=== PATIENT | female | born 1950 | race Caucasian/White ===

== ENCOUNTER 2024-05-14 18:23 | Emergency (ER) | payer MEDICARE, SELFPAY ==
[2024-05-14 18:34] VITALS: BP 139/71; PULSE 82; RESP 20; TEMP 36.9; O2SAT 94
--- NOTE | 2024-05-14 19:11 | ED_ITS ---
HPI - Skin/Abscess/Foreign Bdy General Chief complaint: Skin/Abscess/Foreign Body Stated complaint: Suture Removed Time Seen by Provider: 05/14/24 18:50 Source: patient and RN notes reviewed Mode of arrival: ambulatory Limitations: no limitations History of Present Illness HPI narrative: Patient presents today requesting evaluation of a previous surgical site. She had some melanoma removed from her left groin/inner buttock area at the end of February in [place]. Since that time she has had some absorbable sutures that have migrated through the skin and so far has had to removed this way. States she has felt another 1 trying to come through the skin over the last couple of days and wanted to have it evaluated. She is supposed to have radiation to this area next week and has to have it fully healed by that time. Related Data Home Medications ?Medication ?Instructions ?Recorded ?Confirmed ?Last Taken ?Type famotidine PO 05/14/24 Unknown History hydroxychloroquine PO 05/14/24 Unknown History levothyroxine .ROUTE 05/14/24 Unknown History lisinopril 20 1 tablet PO DAILY 05/14/24 Unknown History mg-hydrochlorothiazide 12.5 mg tablet rosuvastatin .ROUTE 05/14/24 Unknown History tramadol .ROUTE 05/14/24 Unknown History Allergies Allergy/AdvReac Type Severity Reaction Status Date / Time celecoxib (From Celebrex) Allergy Unknown Unknown Verified 05/14/24 18:44 Sulfa (Sulfonamide Allergy Unknown Unknown Verified 05/14/24 18:44 Antibiotics) vitamin c Allergy Unknown Unknown Uncoded 05/14/24 18:44 Review of Systems Review of Systems: CONSTITUTIONAL: Denies body aches, fever, chills, or sweats. EYES: Denies visual changes, redness, or discharge. ENT: Denies rhinorrhea, congestion, sore throat, or otalgia. CARDIOVASCULAR: Denies chest pain, palpitations, or edema. RESPIRATORY: Denies cough or dyspnea. GASTROINTESTINAL: Denies abdominal pain, nausea, vomiting, or diarrhea. GENITOURINARY: Denies dysuria or hematuria. SKIN: + skin issue MUSCULOSKELETAL: Denies back pain, joint pain, or myalgia. NEUROLOGIC: Denies headache, numbness, tingling, or weakness. PSYCH: Denies depression or anxiety. [facility] Past Medical History Medical History (Updated 05/14/24 @ 19:15 by Ly Rob, [facility], ) Melanoma Comments At time of signature, I have reviewed and agree with nursing past medical, surgical, social and family history unless otherwise noted. Please see nursing chart for further information. There is no relevant family history pertinent to the presenting complaint Exam Narrative: GENERAL: Well-appearing, well-nourished, and in no acute distress. HEAD: Normocephalic, atraumatic. EYES: EOMI. No redness or drainage. Conjunctivae normal. ENT: Mucous membranes pink and moist. NECK: Normal AROM. CHEST: No respiratory distress. EXTREMITIES: Normal range of motion. SKIN: Left groin area has multiple scars and 2 small superficial open wounds each measuring approximately 2-3 mm round. Patient has 1 pinpoint area under t he skin that is sharp, that may be a suture poking through, but it has not erupted through the skin yet. No signs of current infection. NEURO: No focal deficits. Alert and oriented x3. Gait steady. PSYCH: Normal affect. No signs of depression or anxiety. Course Course Level of Care: Express Care Visit Vital Signs Vital signs: Vital Signs Temperature 98.4 F 05/14/24 18:34 Pulse Rate 82 05/14/24 18:34 Respiratory Rate 20 05/14/24 18:34 Blood Pressure 139/71 05/14/24 18:34 Pulse Oximetry 94 05/14/24 18:34 Oxygen Delivery Room Air 05/14/24 18:34 Temperature 98.4 F 05/14/24 18:34 Pulse Rate 82 05/14/24 18:34 Respiratory Rate 20 05/14/24 18:34 Blood Pressure 139/71 05/14/24 18:34 Pulse Oximetry 94 05/14/24 18:34 Oxygen Delivery Room Air 05/14/24 18:34 Reviewed MDM - Skin/Abscess/Foreign Bdy MDM Narrative Medical decision making narrative: Patient currently has no erupted suture to be removed. Instructed to continue to monitor. Differential Diagnosis Differential diagnosis: Likely abscess of skin or subcutaneous tissue, cellulitis and other (Foreign body) Critical Care Time Critical Care Time Critical Care Time: No Discharge Plan Discharge Clinical Impression: Open wound of skin Patient Disposition: Home, Self-Care Condition: Stable Additional Instructions: You have 2 small wounds that are still open on your skin. They seem to be very superficial without signs of infection. At this time, you do not have any erupted suture material 3 your skin to be removed. Please continue to monitor. Your blood pressure was elevated above 120/80 today at Urgent Care. This puts you above the threshold for follow up. Please schedule a followup visit with your personal physician as soon as possible, for further evaluation and treatment. Even blood pressure exceeding 120/80 may indicate pre-hypertension. Patient Language: Faroese Prescriptions: No Action famotidine PO lisinopril-hydrochlorothiazide 20-12.5 mg tablet 1 tablet PO DAILY rosuvastatin [Crestor] .ROUTE hydroxychloroquine PO tramadol .ROUTE levothyroxine .ROUTE Follow-up/Referrals: Nicko,Irvin Kwong MD [Primary Care Provider] - Time of Disposition: 19:15
--- OUTSIDE RECORDS SUMMARY | 2024-05-14 19:12 | XMS_ITS | Encounter Summary ---
Author Organization [facility] Address [address] [place] [address] Phone Care Team Providers Care Cloth Washer Back Tender Name Role Phone Irvin Maharaj MD Primary Care Provider [phone] Kenny Hudson MD Unavailable Debi Turner MD Unavailable Reason for Visit * Reason Onset Date Comments Appointment 05/14/2024 Suture Removal 05/14/2024 Encounter Details Date Type Department Care Team (Late st Contact Info) Description 05/14/2024 Telephone [facility] Call Center [address] [place] [address] Irvin Maharaj MD [address] [place] [address] Appointment; Suture Removal Social History Tobacco Use Types Packs/Day Years Used Date Smoking Tobacco: Former Cigarettes 1 1 Smokeless Tobacco: Never Comments:smoked in college Alcohol Use Standard Drinks/Week Comments No 0 (1 standard drink = 0.6 oz pur e alcohol) PHQ-2 Answer Date Recorded Total Score - Questions 1-9 0 11/29 Education Answer Date Recorded What is the highest level of school you have completed or the highest degree you have received? Some college, no degree 10/04/2022 Comments No Sex and Gender Information Value Date Recorded Sex Assigned at Not on file Legal Sex Female 10:15 PM CDT Gender Identity Not on file Sexual Orientation Not on file documented as of this encounter Miscellaneous Notes * Telephone Encounter - Leroy Panda PAC - 05/14/2024 5:22 PM CDT She still has a suture in place from surgery in February?? She needs this removed timoteo if that's thecase. [facility] or nurse clinic would be appropriate for this. * Telephone Encounter - Vanessa Weiss RN - 05/14/2024 3:30 PM CDT Situation: suture removal Background: patient contacting PCP office. Had surgery for melanoma on 03/05/2024 to left groin/thigh and left buttocks. Radiation scheduled for 05/21/24 per patient, after the incision area is healed Reports immunotherapy Nizolumab Relatlimab on 05/10/24 Assessment: Patient needs suture removed from left buttocks Recommendation: First available appointment for cvt rn is 05/21/24 - patient states that this is too late. Patient declining available appointments and states she will be seen at a [facility] care instead. Encounter routed to provider as an FYI. Patient agreeable to go to [facility]. * Telephone Encounter - Suni Gilliam - 05/14/2024 3:27 PM CDT Incision still has a suture that needs removed after surgery. Patient wanting to schedule an appt with PCP office to remove documented in this encounter Plan of Treatment Upcoming Encounters Date Type Department Care Team (Late st Contact Info) Description 06/25/2024 9:00 AM CDT Office Visit [facility] - Primary Care - [place] [address] [place] [address] Irvin Maharaj MD [address] [place] [address] documented as of this encounter Visit Diagnoses Not on filedocumented in this encounter Additional Health Concerns Assessment Noted Time PHQ-9 Depression Total Score: 0 12/20/19 24 2:47 PM CDT documented as of this encounter Care Teams Cloth Washer Back Tender Relationship Specialty Start Date End Date Irvin Maharaj MD [address] [place] [address] PCP - General Internal Medicine 11/29/14 Kenny Hudson MD [address] [place] [address] Consulting Physician Orthopaedic Sports Medicine 07/18/18 Debi Turner MD [address] [address] Consulting Physician Endocrinology 09/15/21 documented as of this encounter
--- OUTSIDE RECORDS SUMMARY | 2024-05-14 19:12 | XMS_ITS | Clinical Summary ---
Author Organization [facility] Address [address], [facility] [address] [place] [address] Phone Care Team Providers Care Escalation Engineer Name Role Phone Irvin Maharaj MD Primary Care Provider [phone] Kenny Hudson MD Unavailable [phone] Debi Turner MD Unavailable Allergies Active Allergy Reactions Criticality Noted Date Comments Celecoxib Rash 06/20/2015 Sulfa Antibiotics Hives 07/26/2023 Vitamin C Nausea Low 12/22/2018 Chewable tablets Medications Multiple Vitamins-Minerals (MULTIVITAMIN PO) Take 1 Cap by mouth every morning. Active Probiotic Product (PROBIOTIC-10 PO) Take by mouth. Active Vitamin D-Vitamin K (VITAMIN K2-VITAMIN D3 PO) Take by mouth. Active hydroxychloroquine (PLAQUENIL) 200 MG Tablet Take 1 Tablet by mouth daily. 90 Tablet 1 2 Active rosuvastatin (CRESTOR) 20 MG TabletIndications: Mixed hyperlipidemia Take 1 Tablet by mouth daily. 90 Tablet 3 3 Active levothyroxine (SYNTHROID) 175 MCG Tablet Take 175 mcg by mouth See Admin Instructions. Takes 6 days per day, does not take on Sundays Active CLOTRIMAZOLE-BETAM ETHASONE EX by Apply externally route. Product from [place] per patient. Includes Gentamicin in cream. States is an anti-itch, antibiotic cream. Active traMADol (ULTRAM) 50 MG TabletIndications: Arthritis Take 1 Tablet by mouth every 8 hours as needed for Moderate or more severe pain. 90 Tablet 1 4 Active lisinopril-hydroCH LOROthiazide (PRINZIDE, ZESTORETIC) 20-12.5 MG TabletIndications: Hypertension, essential Take 2 Tablets by mouth daily. 180 Tablet 1 4 Active famotidine (PEPCID) 20 MG TabletIndications: Gastroesophageal reflux disease without esophagitis TAKE 1 TABLET BY MOUTH TWICE A DAY 180 Tablet 5 Active mupirocin (BACTROBAN) 2 % Ointment 2 times daily. 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 Mixed hyperlipidemia Hypertension, essential Resolved Problems Problem Noted Date Diagnosed Date Resolved Date Papillary thyroid carcinoma 06/15/2023 07/18/2023 Peripheral vascular disease 06/21/2021 09/30/2021 Encounters Date Type Department Care Team Description 05/14/2024 Telephone [facility] [address] [place] [address] Irvin Maharaj MD Appointment; Suture Removal 04/08/2024 Refill [facility] - Primary Care - [place] [address] [place] [address] Irvin Maharaj MD Medication Refill from Last 3 Months Immunizations Immunization Administration Dates Next Due Influenza Vaccine 12/14/2017 Influenza Vaccine greater than 3 yrs 11/14/2019, 11/28/2013 Influenza Vaccine, Quadrivalent, PF 12/30/2016 Influenza, High-dose, Quadrivalent 12/29/2021 Influenza, Quadrivalent, Adjuvanted 12/12/2020 Influenza, Trivalent, Adjuvanted, PF 12/20/2023 Influenza, high-dose, trivalent, PF 11/14/2018,1 PUR FLU HIGH DOSE (FLUZONE) 12/18/2015 PUR PCV-13 06/20/2015 Pneumococcal Vaccine Adult - 23 Valent 5 TDAP Vaccine 12/11/2007 Zoster Vaccine, live 10/05/2010 Family History Medical History Relation Name Comments Chronic Obstructive Pulmonary Disease Father Congestive Heart Failure Father Breast Cancer Maternal Aunt x2 Breast Cancer Maternal Grandmother Diabetes Mother Hypertension Mother Colon Cancer Paternal Uncle Cancer Sister 1 Diabetes Sister 1 Leukemia/Lymphoma Sister 1 Diabetes Sister 2 Relation Name Status Comments Father Maternal Aunt x2 Maternal Grandmother Mother Paternal Uncle Sister 1 Sister 2 Social History Tobacco Use Types Packs/Day Years Used Date Smoking Tobacco: Former Cigarettes 1 1 Smokeless Tobacco: Never Tobacco Cessation:Counseling Given: Not Answered Comments:smoked in college Alcohol Use Standard Drinks/Week [...] on file Sexual Orientation Not on file Last Filed Vital Signs Vital Sign Reading Time Taken Comments Blood Pressure 118/74 12/20/2023 2:49 PM CDT Pulse 74 12/20/2023 2:49 PM CDT Temperature 37.3 C (99.1 F) 12/20/2023 2:49 PM CDT Respiratory Rate 18 12/20/2023 2:49 PM CDT Oxygen Saturation 95% 12/20/2023 2:49 PM CDT Inhaled Oxygen Concentration - - Weight 124.7 kg (275 lb) 12/20/2023 2:49 PM CDT Height 172.7 cm (5' 8 ) 12/20/2023 2:49 PM CDT Body Mass Index 41.81 12/20/2023 2:49 PM CDT Plan of Treatment Upcoming Encounters Date Type Department Care Team (Late st Contact Info) Description 06/25/2024 9:00 AM CDT Office Visit [facility] - Primary Care - [place] [address] [place] [phone] Irvin aMharaj MD [address] [place] [address] Health Maintenance Due Date Last Done Comments Cologuard 05/05/1999 Immunochemical Fecal Occult Blood 05/05/1999 Zoster Immunization (1 of 2) 11/30/2010 10/05/2010 Td Immunization Every 10 Years (Adults With 1 Tdap) 12/10/2017 12/11/2007 DEXA Bone Density 07/20/2019 07/19/2017, 02/28/2010 SARS-COV-2 Immunization (2 - Pfizer risk series) 12/30/2021 12/09/2021 Mammogram 05/26/2022 05/26/2021, 07/30/2016 Respiratory Syncytial Virus (RSV) Immunization (Adult) (1 - 1-dose 75+ series) 2024 Colonoscopy 03/14/2029 03/14/2019, 12/06/2016 Colorectal Cancer Screening 03/14/2029 03/14/2019, 12/06/2016 Pneumococcal Immunization (50+ years) Completed 06/20/2015, 05/29/2014 Pneumococcal Immunization Combined Discontinued 06/20/2015, 05/29/2014 Hepatitis C Virus (HCV) Screening Completed 10/07/2023 Influenza Immunization Completed , 12/29/2021, 12/12/2020, Additional history exists Hepatitis B Immunization Aged Out No longer eligible based on patient's age to complete this topic Meningococcal Immunization (ACWY) Aged Out No longer eligible based on patient's age to complete this topic Rotavirus Immunization Aged Out No lo nger eligible based on patient's age to complete this topic Procedures Procedure Name Priority Date/Time Associated Diagnosis Comments HEPATITIS C ANTIBODY Routine 10/07/2023 9:17 AM CDT Encounter for hepatitis C screening test for low risk patient MAMMOGRAM BILATERAL GENERIC 05/26/2021 12:00 AM CDT COLONOSCOPY Routine 03/14/2019 [facility] BONE DENSITOMETRY AXIAL SKELETON Routine 07/19/2017 11:30 AM CDT Asymptomatic menopausal state Encounter for screening for osteoporosis from Last 3 Months or Most Recently Relevant to Health Maintenance Results * HEPATITIS C ANTIBODY (10/07/2023 9:17 AM CDT) hepatitis C antibody 0.07 <1 S/CO 10/07/2023 11:00 PM CDT [facility] Comment: Signal/Cutoff ratio < 0.79 is Nondetected Signal/Cutoff ratio 0.80-0.99 is Grayzone Signal/Cutoff ratio > 0.99 is Detected Supplemental assays are recommended if signal/cutoff ratio is >/=1.00. Signal/cutoff ratio result >/= 5.00 is 97% predictive of positivity for recombinant immunoblot assay (RIBA) and will be reported to the [place] Department of Public Health as required. Blood Venipuncture / Unknown 10/07/2023 9:17 AM CDT 10/07/2023 9:17 AM CDT us Irvin Maharaj MD CHEMISTRY ORDERABLES Jennifer l Result [facility] [address] [place] [address], [place] * MAMMOGRAM BILATERAL MISCELLANEOUS (05/26/2021 12:00 AM CDT) 05/26/2021 us Not On File Provider IMG MAMMO ORDERABLES Final Result SCAN * COLONOSCOPY (03/14/2019) us Not On File Provider PROCEDURE/MINOR SURGICAL OR DERABLES Final Result * [facility] BONE DENSITOMETRY AXIAL SKELETON (07/19/2017 11:30 AM CDT) Anatomical Region Laterality Modality BODY N/A Other 07/19/2017 11:4 4 AM CDT Impressions 07/19/2017 11:46 AM CDT IMPRESSION: Normal bone mineral density. Bone mineral density: Normal (T-score above or = -1.0) Low bone mass (T-score between -1.0 and -2.5) replaces the previously used term osteopenia Osteoporosis (T-score = or below -2.5) Medical evaluation for secondary causes of low bone mineral density may be appropriate. FRAX is a World Health Organization validated fracture risk assessment tool that calculates a person's 10 year probability of a major osteoporosis related fracture and hip fracture. According to the National Osteoporosis Foundation guidelines, postmenopausal women and men age 50 or older with low bone mass and a 10 year probability of a major osteoporosis related fracture = or greater than 20% or a 10 year probability of a hip fracture = or greater than 3% should be considered for treatment. For further information, including treatment recommendations, please refer to the 2013 ISCD Official Positions (http://www.iscd.org) and the NOF's Clinician's Guide to Prevention and Treatment of Osteoporosis (http://www.nof.org/professionals/clinical-guidelines) Narrative 07/19/2017 11:46 AM CDT EXAM DESCRIPTION: [facility] BONE DENSITOMETRY AXIAL SKELETON COMPLETED DATE/TIME: 07/19/2017 11:33 am REASON FOR STUDY: 67 y/o year old postmenopausal white female with given history of screening. Instructional Resource Teacher/Model: [employer] (S/N [id number]) CLINICAL INFORMATION: Current height: 68 inches Maximum height: 68.5 inches Weight: 280 pounds Risk factors: None. Has taken vitamin-D, calcium, multivitamin. Does not perform regular weight-bearing exercise. Regularly consumes dairy products. Drinks caffeinated beverages. COMPARISON: None available. FINDINGS: AP LUMBAR SPINE L1-L4: Total BMD is 1.303 g/cm2 T-score is 0.9 LEFT HIP: Total BMD is 1.048 g/cm2 T-score is 0.3 Femoral neck BMD is 0.994 g/cm2 T-score is -0.3 THIS IS AN ELECTRONICALLY VERIFIED FINAL REPORT 07/19/2017 11:44 AM - Electronically signed by Delvin Aponte M.D. RB: JONAH Report ID: [id number] Reading Location: [id number] Procedure Note Delvin Aponte MD - 07/19/2017 EXAM DESCRIPTION: [facility] BONE DENSITOMETRY AXIAL SKELETON COMPLETED DATE/TIME: 07/19/2017 11:33 am REASON FOR STUDY: 67 y/o year old postmenopausal white female with given history of screening. Instructional Resource Teacher/Model: [employer] (S/N [id number]) CLINICAL INFORMATION: Current height: 68 inches Maximum height: 68.5 inches Weight: 280 pounds Risk factors: None. Has taken vitamin-D, calcium, multivitamin. Does not perform regular weight-bearing exercise. Regularly consumes dairy products. Drinks caffeinated beverages. COMPARISON: None available. FINDINGS: AP LUMBAR SPINE L1-L4: Total BMD is 1.303 g/cm2 T-score is 0.9 LEFT HIP: Total BMD is 1.048 g/cm2 T-score is 0.3 Femoral neck BMD is 0.994 g/cm2 T-score is -0.3 THIS IS AN ELECTRONICALLY VERIFIED FINAL REPORT 07/19/2017 11:44 AM - Electronically signed by Delvin Aponte M.D. RB: JONAH Report ID: [id number] Reading Location: [id number] IMPRESSION: Normal bone mineral density. Bone mineral density: Normal (T-score above or = -1.0) Low bone mass (T-score between -1.0 and -2.5) replaces the previously used term osteopenia Osteoporosis (T-score = or below -2.5) Medical evaluation for secondary causes of low bone mineral density may be appropriate. FRAX is a World Health Organization validated fracture risk assessment tool that calculates a person's 10 year probability of a major osteoporosis related fracture and hip fracture. According to the National Osteoporosis Foundation guidelines, postmenopausal women and men age 50 or older with low bone mass and a 10 year probability of a major osteoporosis related fracture = or greater than 20% or a 10 year probability of a hip fracture = or greater than 3% should be considered for treatment. For further information, including treatment recommendations, please refer to the 2013 ISCD Official Positions (http://www.iscd.org) and the NOF's Clinician's Guide to Prevention and Treatment of Osteoporosis (http://www.nof.org/professionals/clinical-guidelines) us Irvin Maharaj MD IMG DEXA ORDERABLES Final Result from Last 3 Months or Most Recently Relevant to Health Maintenance Insurance MEDICARE [employer] MEDICARE SUP Advance Directives Documents on File Type Date Recorded Patient Telephone Engineer Expl anation Power of Shaft Repairer for Health Care 08/01/2019 10:01 AM POA Care Teams Escalation Engineer Relationship Specialty Start Date End Date Irvin Maharaj MD [address] [place] [address] PCP - General Internal Medicine 11/29/14 Kenny Hudson MD [address] [place] [address] Consulting Physician Orthopaedic Sports Medicine 07/18/18 Debi Turner MD [address] [address] Consulting Physician Endocrinology 09/15/21
--- OUTSIDE RECORDS SUMMARY | 2024-05-14 19:12 | XMS_ITS | Referral Summary ---
Author Organization [facility] Medical Office Building B Address [address] [place] [address] Care Team Providers Care Airborne And Air Delivery Specialist Name Role Phone Irvin Maharaj MD Primary Care Provider + Allergies Active Allergy Reactions Criticality Noted Date Comments Ascorbate Calcium Nausea only Low 12/22/2018 Chewable tablets Celecoxib Anaphylaxis,Rash High 06/20/2015 Medications lisinopril-hydroC HLOROthiazide (PRINZIDE,ZESTORE TIC) 20-12.5 mg per tablet Take 1 tablet by mouth 2 (two) times a day 9 Active omega-3 fatty acids-fish oil (FISH OIL) 360-1,200 mg capsule Take 1,200 mg by mouth daily Active rosuvastatin (CRESTOR) 20 mg tablet Take 20 mg by mouth daily 3 9 Active multivit-min/iron /folic/lutein (MULTIVITAMIN WOMEN 50 PLUS ORAL)Indications: supplement Take 1 tablet by mouth daily. Indications: supplement Active traMADol (ULTRAM) 50 mg tablet Take 50 mg by mouth every 8 (eight) hours as needed 9 Active amoxicillin (AMOXIL) 500 mg tablet/capsule Take 4 tablets (2000 mg) PO 1 hour prior to dental procedure. 4 each 4 9 Active pediatric multivitamin tablet,chewable Take 1 capsule by mouth exhibits manager before breakfast Active famotidine (PEPCID) 40 mg tablet Take 40 mg by mouth nightly Active omeprazole (PriLOSEC) 40 mg capsule Take 40 mg by mouth 0 Active calcium carbonate (OS-TIMOTHY) 1,500 mg (600 mg of elemental calcium) tablet Take 1 tablet by mouth exhibits manager before breakfast Active traMADoL (ULTRAM) 50 mg tablet Take 1 tablet (50 mg total) by mouth every 6 (six) hours as needed for pain for up to 20 doses 20 tablet 3 Active Active Problems Problem Noted Date Diagnosed Date History of total knee arthroplasty, left 020 Pes anserine bursitis 07/20/2018 Overview (07/20/2018): Added automatically from request for surgery [id number] Morbid obesity with BMI of 40.0-44.9, adult 06/29 Overview (07/20/2018): Added automatically from request for surgery [id number] Resolved Problems Problem Noted Date Diagnosed Date Resolved Date Primary osteoarthritis of left knee 07/20/2018 09/28/2019 Overview (07/20/2018): Added automatically from request for surgery [id number] Social History Tobacco Use Types Packs/Day Years Used Date Smoking Tobacco: Never Smokeless Tobacco: Never Alcohol Use Standard Drinks/Week Comments Yes 0 (1 standard drink = 0.6 oz pur e alcohol) occasional PHQ-2 Answer Date Recorded PHQ-2 Score 0 10/19/2018 Personal Safety Answer Date Recorded Have you ever been in or are you currently in a harmful physical or emotional relationship or is someone making you feel afraid or unsafe? 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 Gender Identity Not on file Sexual Orientation Not on file Last Filed Vital Signs Vital Sign Reading Time Taken Comments Blood Pressure 134/66 12/19/2022 4:15 AM CDT Pulse 87 12/19/2022 4:15 AM CDT Temperature 37.3 C (99.1 F) 12/19/2022 1:03 AM CDT Respiratory Rate 16 12/19/2022 4:15 AM CDT Oxygen Saturation 96% 12/19/2022 4:15 AM CDT Inhaled Oxygen Concentration - - Weight 131.5 kg (290 lb) 12/19/2022 1:00 AM CDT Height 172.7 cm (5' 8 ) 12/19/2022 1:00 AM CDT Body Mass Index 44.09 12/19/2022 1:00 AM CDT Plan of Treatment Not on file Medical Devices Implanted Type Area Jewel Cupping Machine Operator Device Identifier Shelf Expiration Date Model / Serial / Lot [employer] [id number] Attune Cementless Rotate Platform Knee 7 Baseplate Tibial - [id number] Implanted:Qty: 1 on 08/08/2018 by Kenny Hudson MD at [facility] Left: Knee [employer] 08/28/2027 [id number] / / [id number] [employer] [id number] Attune Cruciate Retain Cementless Knee Left 7 Component Femoral - [id number] Implanted:Qty: 1 on 08/08/2018 by Kenny Hudson MD at [facility] Left: Knee [employer] 11/28/2027 [id number] / / [id number] [employer] [id number] Attune 5mm Cruciate Retaining Rotate Platform Knee 7 Insert - [id number] Implanted:Qty: 1 on 08/08/2018 by Kenny Hudson MD at [facility] Left: Knee [employer] 06/28/2023 [id number] / / [id number] Insurance MEDICARE SUPPLEMENT INSURANCE MEDICARE MEDICARE MEDICARE CIG MEDICARE SUPPLEMENT INSURANCE Advance Directives For more information, please contact: [phone] * Full Code (Latest Code Status on File) Date Activated Date Inactivated Comments 08/08/2018 4:27 PM 08/09/2018 9:08 PM Care Teams Airborne And Air Delivery Specialist Relationship Specialty Start Date End Date Irvin Maharaj MD PCP - General Internal Medicine 06/23/18
--- OUTSIDE RECORDS SUMMARY | 2024-05-14 19:12 | XMS_ITS | Continuity of Care Document ---
Author Organization [facility] Address [address] [place] [address] [place] [address] Phone Care Team Providers Care Vegetable Sorter Name Role Phone Romeo Perez MD, FACS Unavailable Unavailab le Procedures Procedure Date Autonomous -Lasik Comanaged Autonomous -Lasik Comanaged Refractive Rx Kit Sales Tax Corneal Topography Advance Directives Directive Yes / No Effective Date File Name No Information Encounters Encounter Description Practice Location Reason(s) For Visit Diagnoses Date Provider Providers Copied on Encounter [facility], [address] [place], [place] [address], [place], [place], [id number], tel:[phone] [facility] No Information Chris Walters. [address] [place] [address] [address], [address], [place], [place], [id number], [place]. tel:[phone] [facility], [address] [place] [address] [address], [place], [place], [id number], tel:[phone] [facility] No Information [facility] . [address] [place] [address], [place], [place], [id number], [place]. tel:[phone] Family History Family Member Type Diagnosis Age At Onset No Information Payers Payer name Insurance type Covered constitution party ID Authoriza tion(s) No Information Social History Type Description Quantity Date Captured Comments Sex Female Smoking Status No Information Chief Complaint And Reason For Visit No Information Reason For Referral Reason For Referral No Information History Of Present Illness Encounter Date Complaint History Of Prese nt Illness No Information Functional Status Date Functional Assessmen t No Information Instructions Date Instruction Additional Infor mation No Information Assessments Type Assessment Date No Information Patient Care Teams Name Effective Dates (start - stop) Status Members No Information
--- OUTSIDE RECORDS SUMMARY | 2024-05-14 19:12 | XMS_ITS | Clinical Summary ---
Author Organization [facility] Medical Office Building [address] Address [address] [place] [address] Care Team Providers Care Gravity Prospecting Observer Name Role Phone Irvin Maharaj MD Primary [...] multivitamin tablet,chewable Take 1 capsule by mouth professor of early childhood education before breakfast Active famotidine (PEPCID) 40 mg tablet Take 40 mg by mouth nightly Active omeprazole (PriLOSEC) 40 mg capsule Take 40 mg by mouth 0 Active calcium carbonate (OS-TIMOTHY) 1,500 mg (600 mg of elemental calcium) tablet Take 1 tablet by mouth professor of early childhood education before breakfast Active traMADoL (ULTRAM) 50 mg tablet Take 1 tablet (50 mg total) by mouth every 6 (six) hours as needed for pain for up to 20 doses 20 tablet 3 Active Active Problems Problem Noted Date Diagnosed Date History of total knee arthroplasty, left 020 Pes anserine bursitis 07/20/2018 Overview (07/20/2018): Added automatically from request for surgery [id number] Morbid obesity with BMI of 40.0-44.9, adult 06/29 Overview (07/20/2018): Added automatically from request for surgery [id number] Resolved Problems Problem Noted Date Diagnosed Date Resolved Date Primary osteoarthritis of left knee 07/20/2018 09/28/2019 Overview (07/20/2018): Added automatically from request for surgery [id number] Surgical History Surgery Date Site/Laterality Comments LAMINECTOMY JOINT REPLACEMENT KNEE SURGERY CHOLECYSTECTOMY APPENDECTOMY LAPAROTOMY Medical History Medical History Date Comments Hypertension Hypercholesteremia Thyroid nodule Family History Medical History Relation Name Comments Cancer Other Diabetes Other Heart disease Other Hypertension Other Relation Name Status Comments Other Social History Tobacco Use Types Packs/Day Years [...] on file 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 Gender Identity Not on file Sexual Orientation Not on file Obstetrics History Last Filed Vital Signs Vital Sign Reading [...] 12/19/2022 1:00 AM CDT Plan of Treatment Health Maintenance Due Date Last Done Comments Breast Cancer Screening-Mammogram 1950 Colon Cancer Screening-Colonoscopy 1950 Fall Risk Assessment 1950 Hepatitis C Screening 1950 Osteoporosis Screening-Bone Density Scan 1950 Hepatitis B Screening 05/05/1967 Zoster Vaccine (2 of 3) 11/30/2010 10/05/2010 Well Visit 65+ 2014 DTaP/Tdap/Td Vaccine (2 - Td or Tdap) 12/10/2017 12/11/2007 Depression Screening 07/21/2019 07/20/2018 Influenza Vaccine (#1) 2023 0, 11/14/2018, 12/14/2017, Additional history exists Pneumococcal vaccine 65+ Completed 06/20/2015, 0402/2014 Medical Devices Implanted Type Area Toll Line Repairer Device Identifier Shelf Expiration Date Model / Serial / Lot [employer] [id number] Attune Cementless Rotate Platform Knee 7 Baseplate Tibial - [id number] Implanted:Qty: 1 on 08/08/2018 by Kenny Hudson MD at [facility] Left: Knee [employer] 08/28/2027 [id number] / / [id number] [employer] [id number] Attune Cruciate Retain Cementless Knee Left 7 Component Femoral - [id number] Implanted:Qty: 1 on 08/08/2018 by Kenny Hudson MD at [facility] Left: Knee [employer] 11/28/2027 [id number] / / [id number] [employer] [id number] Attune 5mm Cruciate Retaining Rotate Platform Knee 7 Insert - [id number] Implanted:Qty: 1 on 08/08/2018 by Kenny Hudson MD at [facility] Left: Knee [employer] 06/28/2023 [id number] / / [id number] Insurance MEDICARE MEDICARE MEDICARE CIG MEDICARE SUPPLEMENT INSURANCE Advance Directives For more information, please contact: [phone] * Full Code (Latest Code Status on File) Date Activated Date Inactivated Comments 08/08/2018 4:27 PM 08/09/2018 9:08 PM Care Teams Gravity Prospecting Observer Relationship Specialty Start Date End Date Irvin Maharaj MD PCP - General Internal Medicine 06/23/18
--- OUTSIDE RECORDS SUMMARY | 2024-05-14 19:12 | XMS_ITS | Patient Health Record ---
Author Organization [facility] Address [address] [place] [address] Care Team Providers Care Sales Manager Prearranged Funerals Name Role Phone Fazal Tinoco Unavailable Unavailable Allergies Allergen (clinical drug ingredient) Drug/Non Drug Allergy documented on EMR Reaction Allergy Type Onset Date Status celecoxib Celebrex BREAKOUT Drug Allergy Active ascorbic acid Vitamin C Unknown Drug Allergy Act niesha Reason For Referral No Information Medications Medication SIG (Take, Route, Frequency, Duration) Notes Start Date End Date Status Calcium + D3 Unknown Fish Oil Unknown [place] 3 Unknown Naproxen Unknown Lisinopril-hydroCHLOROthia zide Unknown traMADol HCl Unknown Crestor Unknown Plan Of Treatment Pending Test Test Name Order Date THINPREP PAP AND HR HPV DNA, C. TRACHOMA TIS AND N. GONORRHOEAE 01/24/2019 THINPREP TIS PAP AND HR HPV DNA, C. TRAC HOMATIS AND N. GONORRHOEAE 01/24/2019 Insurance Providers Payer Name Payer Address Payer Phone Subscriber Number Group Number Insured Name Patient Relationship to Insured Coverage Start Date Coverage End Date [place] of [place] [address] [place] [id number] ALDENILDEFONSOANTONETTESOHA Self - patient is the insured 5 [employer] [address] [place] [address] [id number] MIMA SOHA Self - patient is the insured 5 Medical (General) History Medical History History ICD Code high cholesterol HTN Surgical History Surgery Date(Month/Year) laminectomy GALLBLADDER laparotomy GISELE KNEE cataract removal lasik Hospitalization History Reason Date(Month/Year) LEFT KNEE SX 07/2018
--- OUTSIDE RECORDS SUMMARY | 2024-05-14 19:12 | XMS_ITS ---
Author Organization [facility] Address [address] [place] [address] Care Team Providers Care Classics Professor Name Role Phone Rica Hancock Primary Care Provider Allergies Allergen (clinical drug ingredient) Drug/Non Drug Allergy documented on EMR Reaction Allergy Type Onset Date Status celecoxib CeleBREX Unknown Drug Allergy 06/18/2021 Active Reason For Referral Reason Screening Mammogram Diagnosis 1 Encounter for other screening for malignant neoplasm of breast (Z12.39) Referral Organization [facility] Maliha Referring Provider First Name Rica Referring Provider Last Name Santi Referring Provider Speciality Physician Restorative Rehab Aide Referred Provider [facility] ([place]) Referred Provider Specialty Diagnostic X -Ray Referral Priority Routine Referral Appointment Date 02/02/2024 REASON FOR VISIT 73 y/o female here for 2 week f/u Medications Medication SIG (Take, Route, Frequency, Duration) Notes Start Date End Date Status Crestor 20 MG Oral 05/11/2022 Not-T aking Doxycycline Monohydrate 100 MG 1 capsule Orally twice a day for 10 days 01/10/2024 Active traMADol HCl 50 MG 1 tablet as needed Orally every 8 hrs as needed by ER Active Gabapentin 100 MG 1 capsule Oral Once a day as needed 05/11/2022 Active Famotidine 20 MG 1 tablet Orally Twice a day for 90 days 01/02/2023 Active Mupirocin Calcium 2 % 1 application Externally Twice a day for 5 days 01/10/2024 Active methIMAzole 5 MG 1 tablet Oral Once a day on Tuesday, Tue, Tue05/11/2022 Active Lisinopril-hydroCHLOROthiazi de 20-12.5 MG TAKE 1 TABLET BY MOUTH TWICE A DAY for 90 Active Omeprazole 40 MG 1 cap Oral Once a day as needed 05/11/2022 Active Rosuvastatin Calcium 20 MG 1 tablet Oral ly Once a day for 90 days Active Hydroxychloroquine Sulfate 200 MG 1 tab Oral once a day 05/11/2022 Active Social History Tobacco Use: Social History Observation Description Date Details (start date - stop date) Never Smoker NA - NA Tobacco Use/Smoking Question Answer Notes Tobacco use: nonsmoker Vital Signs Height 66.0 in 01/24/2024 Weight 279.4 lbs 01/24/2024 Weight-kg 126.73 kg 01/24/2024 BMI 45.09 kg/m2 01/24/2024 Blood pressure systolic 133 mm Hg 01/24/20 24 Blood pressure diastolic 79 mm Hg 024 Heart Rate 71 /min 01/24/2024 Temperature 97.3 degrees Fahrenheit 01/24/20 Oximetry 94 % 01/24/2024 Height-cm 167.64 cm 01/24/2024 Encounters Encounter Location Date Provider Diagnosis [facility] Maliha [address] [facility] [address] 01/24/2024 Rica Hancock Encounter for other screening for malignant neoplasm of breast Z12.39 ; Mixed hyperlipidemia E78.2 ; Essential (primary) hypertension I10 ; Peripheral vascular disease, unspecified I73.9 ; Impaired fasting glucose R73.01 ; Gastroesophageal reflux disease without esophagitis K21.9 and Skin lesion L98.9 Assessments Encounter Date Diagnosis (ICD Code) Assessment Notes Treatment Notes Treatment Clinical Notes Section Notes 01/24/2024 Encounter for other screening for malignant neoplasm of breast (ICD-10 - Z12.39) Today I have ordered you a Bilateral Screening Mammogram for your annual breast cancer screening. Please get this study done as soon as you are able and we will discuss the results when they return. 01/24/2024 Mixed hyperlipidemia (ICD-10 - E78.2) Follow low fat diet, increase physical activity, and medication compliance a must, make sure to keep routine lab updates to evaluate cholesterol. 01/24/2024 Essential (primary) hypertension (ICD-10 - I10) Treatment: Check Blood Pressure Daily. Continue with Antihypertensive medication. Diet: Low Sodium Diet < 2000 mg/ Day. Recommendations: Exercise 30 minutes daily with Caution and Monitor Blood Pressure daily. Maintain blood pressure <130/80. RTO as scheduled. 01/24/2024 Peripheral vascular disease, unspecified (ICD-10 - I73.9) Advised to continue with healthy life style, daily exercise ,includes: low sodium diet, low cholesterol diet, DASH diet and regularly exercise. Elevate legs /compression stocking to alleviate sxs 01/24/2024 Impaired fasting glucose (ICD-10 - R73.01) Discussed with patient that lab results show impaired fasting blood glucose which suggests insulin resistance and a predisposition for diabetes; risk factors discussed in detail; a lower carbohydrate diet advised. Weight loss and exercise encouraged. Will monitor closely with A1C testing 01/24/2024 Gastroesophageal reflux disease without esophagitis (ICD-10 - K21.9) Advised pt to eat smaller meals, avoid spicy and acidic food, do not eat within 2 hours of bed, and weight loss can help. Return precautions discussed including blood in vomit or stool, severe worsening of pain, etc. 01/24/2024 Skin lesion (ICD-10 - L98.9) pending derm eval Plan Of Treatment Treatment Notes Assessment Notes Encounter for other screenin g for malignant neoplasm of breast Today I have ordered you a Bilateral Screening Mammogram for your annual breast cancer screening. Please get this study done as soon as you are able and we will discuss the results when they return. Mixed hyperlipidemia Follow low fat diet , increase physical activity, and medication compliance a must, make sure to keep routine lab updates to evaluate cholesterol. Essential (primary) hypertension Treatment: Check Blood Pressure Daily. Continue with Antihypertensive medication. Diet: Low Sodium Diet < 2000 mg/ Day. Recommendations: Exercise 30 minutes daily with Caution and Monitor Blood Pressure daily. Maintain blood pressure <130/80. RTO as scheduled. Peripheral vascular disease, unspecified Advised to continue with healthy life style, daily exercise ,includes: low sodium diet, low cholesterol diet, DASH diet and regularly exercise. Elevate legs /compression stocking to alleviate sxs Impaired fasting glucose Discussed with patient that lab results show impaired fasting blood glucose which suggests insulin resistance and a predisposition for diabetes; risk factors discussed in detail; a lower carbohydrate diet advised. Weight loss and exercise encouraged. Will monitor closely with A1C testing Gastroesophageal reflux dise ase without esophagitis Advised pt to eat smaller meals, avoid spicy and acidic food, do not eat within 2 hours of bed, and weight loss can help. Return precautions discussed including blood in vomit or stool, severe worsening of pain, etc. Skin lesion pending derm eval Future Test Test Name Order Date 173 LIPID PANEL 04/25/2024 1000 CBC W/AUTO DIFF 04/25/2024 1505 URINALYSIS WITH MICROSCOPIC 025 2708 HEMOGLOBIN A1c 04/25/2024 4895 ALBUMIN/CREATININE RATIO, RANDOM UR INE 04/25/2024 9179 COMPREHENSIVE METABOLIC PANEL 04/25 Referrals Referral Date Details 01/24/2024 01/24/2024, Screenin g Mammogram, [facility] ([place] Next Appt Details Follow Up: 4 Weeks, Reason: mammo results Provider Name:Rica heard, 09/04/2024 09:00:00 AM, [address], [place], [address], Progress Notes * SOHA GUILLERMO LDOB: [birth year] (73 yo F)Acc No.[id number]:01/24/2024 Patient: Isaura BrooksSOHA FREGOSO Provider: Lizbeth Hancock PA-C :1950 A ge:73 Y S ex:Female Date:01/24/2024 Address:[address] [id number] Subjective: * Chief Complaints: * [age] y/o female here for 2 week f/u * HPI: A llergic rhinitis: Patient(pt) presents for management of chronic conditions, and to review imaging and testing done on last visit pt denies any new concerns at this time and has been compliant on all meds and taking them as directed. Pt denies any chest pain, palpitations, shortness of breath or dyspnea on exertion at this time. Pt is sleeping and toileting normally. Pt is under care with a chiropracter who has her on Alphabase vitamins 3x/day ( a large list of multivitamins in 1 cap) Pt advised to decreased to one a day and only M-F due to renal function Dexa was WNL Quantaflo was WNL FOBT was just brought in yesteday- pending results Labs to be reviewed with pt today Pt was just seen by her Rf Manager-- no change in meds. * ROS: G eneral / Constitutional: - d enies fever or chills. C ardiovascular: - d enies c hest pain, palpitations, edema or diaphoresis, denies o rthopnea or PND. G astrointestinal: - d enies n ausea, vomiting, abdominal pain or distention, or change in bowel habits, denies b lack stools or blood in stools. H ematology: - d enies b ruising or unusal bleeding. ? G enitourinary: - d enies d ysuria, increased frequency, hematuria or discharge, denies i ncontinence. M usculoskeletal: - d enies u nusual aches or pains. P eripheral Vascular: - d enies c laudication, rest pain or gangrene. ? N eurologic: - d enies s eizures or syncope, tremors or weakness, denies headaches or confusion. * Medical History: * Surgical History: A ppendectomy ([id number]) 2Cholecystectomy 02/28/1977Replacement of right knee joint ([id number]) 02/28/2014Laminectomy ([id number]) Lumbar 02/28/2015Left TKR Cataracts D&C * Hospitalization/Major Diagno stic Procedure: C hest pain 12/19/22 * Family History: F ather: , diagnosed with Hypercholesteremia, Essential hypertension. M other: , diagnosed with Essential hypertension, Type 2 diabetes mellitus without complication, unspecified whether buttermaker continuous churn insulin use. S ister: Leukemia , Malignant neoplasm of brain , diagnosed with Essential hypertension, Type 2 diabetes mellitus without complication, unspecified whether buttermaker continuous churn insulin use. M aternal Grandmother: Malignant tumor of breast . P aternal Uncle: Malignant tumor of stomach . M aternal Aunt: Malignant tumor of colon , Malignant tumor of breast .?3 sister(s) . . * Social History: T obacco Use: T obacco Use/Smoking T obacco use: n onsmoker * Medications: T akingDoxycycline Monohydrate 100 MG Capsule 1 capsule Orally twice a day Famotidine 20 MG Tablet 1 tablet Orally Twice a day Gabapentin 100 MG Capsule 1 capsule Oral Once a day as needed Hydroxychloroquine Sulfate 200 MG Tablet 1 tab Oral once a day Lisinopril-hydroCHLOROthiazide 20-12.5 MG Tablet TAKE 1 TABLET BY MOUTH TWICE A DAY methIMAzole 5 MG Tablet 1 tablet Oral Once a day on Tuesday, Tue Mupirocin Calcium 2 % Cream 1 application Externally Twice a day Omeprazole 40 MG Capsule Delayed Release 1 cap Oral Once a day as needed Rosuvastatin Calcium 20 MG Tablet 1 tablet Orally Once a day traMADol HCl 50 MG Tablet 1 tablet as needed Orally every 8 hrs as needed , Notes to Pharmacist: by ERTaking Doxycycline Monohydrate 100 MG Capsule 1 capsule Orally twice a day Taking Famotidine 20 MG Tablet 1 tablet Orally Twice a day Taking Gabapentin 100 MG Capsule 1 capsule Oral Once a day as needed Taking Hydroxychloroquine Sulfate 200 MG Tablet 1 tab Oral once a day Taking Lisinopril-hydroCHLOROthiazide 20-12.5 MG Tablet TAKE 1 TABLET BY MOUTH TWICE A DAY Taking methIMAzole 5 MG Tablet 1 tablet Oral Once a day on Tuesday, Tue Taking Mupirocin Calcium 2 % Cream 1 application Externally Twice a day Taking Omeprazole 40 MG Capsule Delayed Release 1 cap Oral Once a day as needed Taking Rosuvastatin Calcium 20 MG Tablet 1 tablet Orally Once a day Taking traMADol HCl 50 MG Tablet 1 tablet as needed Orally every 8 hrs as needed , Notes to Pharmacist: by ERNot-TakingCrestor 20 MG Tablet Oral Medication List reviewed and reconciled with the patientNot-Taking Crestor 20 MG Tablet Oral Medication List reviewed and reconciled with the patient * Allergies: C miguelitoBREX: Allergy - Onset Date 06/18/2021no[Allergies Verified] Objective: * Vitals: H t: 66.0 in, Wt:279.4lbs, Wt-k.73 kg, BMI:45.09Index, BP:133/79mm Hg, HR:71/min, Temp:97.3F, Oxygen sat %:94%, Body Surface Area: 2.43, Ht-cm: 167.64 cm. * Examination: G eneral Examination: General appearance: a lert, pleasant, well-nourished and in no acute distress, morbid obesity ( BMi 45). Neck / thyroid: n rosalio is supple, with full range of motion and no cervical lymphadenopathy. Heart: r egular rate and rhythm without murmurs, gallops, clicks or rubs. Chest: c hest wall with no costochondral junction tenderness, no rib deformity and normal shape and expansion. Lungs: n onlabored respirations, lungs are clear bilaterally without rales or rhonchi. Abdomen: s oft with good bowel sounds, nontender, and no masses or hepatosplenomegaly. Extremities r ight knee crepitus. Back: n ormal, without kyphoscoliosis or tenderness. Skin: A ssymetrical multicolored (black /blue) lesion -- raised off of skin 2.2cm x 1.8 cm -- nodular surface with 2 small red protrusions coming out of one end of it-- non-painful-- located to inner left buttock . Head: n ormocephalic, atraumatic. Lymph nodes: n o axillary, supraclavicular or inguinal lymphadenopathy. Extremities: n ormal extremity with no clubbing, cyanosis or edema. Psych: a lert and oriented x 3 , cooperative with exam , maintains good eye contact , with good judgement and insight , normal affect / mood. ? Assessment: * Assessment: 1. M ixed hyperlipidemia - E78.2 (Primary) 2 . E ncounter for other screening for malignant neoplasm of breast - Z12.39 3 . E ssential (primary) hypertension - I10 4 . P eripheral vascular disease, unspecified - I73.9 5 . I mpaired fasting glucose - R73.01 6 . G astroesophageal reflux disease without esophagitis - K21.9 7 . S kin lesion - L98.9 Plan: * Treatment: 2. E ncounter for other screening for malignant neoplasm of breast Notes: Today I have ordered you a Bilateral Screening Mammogram for your annual breast cancer screening. Please get this study done as soon as you are able and we will discuss the results when they return. Referral To:[facility] ([place] Reason:Screening Mammogram 3. E ssential (primary) hypertension L AB: 9179 COMPREHENSIVE METABOLIC PANEL (Ordered for 04/25/2024) L AB: 1000 CBC W/AUTO DIFF (Ordered for 04/25/2024) Notes: Treatment: Check Blood Pressure Daily. Continue with Antihypertensive medication. Diet: Low Sodium Diet < 2000 mg/ Day. Recommendations: Exercise 30 minutes daily with Caution and Monitor Blood Pressure daily. Maintain blood pressure <130/80. RTO as scheduled. 4. P eripheral vascular disease, unspecified Notes: Advised to continue with healthy life style, daily exercise ,includes: low sodium diet, low cholesterol diet, DASH diet and regularly exercise. Elevate legs /compression stocking to alleviate sxs 5. I mpaired fasting glucose L AB: 1505 URINALYSIS WITH MICROSCOPIC (Ordered for 04/25/2024) L AB: 2708 HEMOGLOBIN A1c (Ordered for 04/25/2024) L AB: 4895 ALBUMIN/CREATININE RATIO, RANDOM URINE (Ordered for 04/25/2024) Notes: Discussed with patient that lab results show impaired fasting blood glucose which suggests insulin resistance and a predisposition for diabetes; risk factors discussed in detail; a lower carbohydrate diet advised. Weight loss and exercise encouraged. Will monitor closely with A1C testing? 6. G astroesophageal reflux disease without esophagitis Notes: Advised pt to eat smaller meals, avoid spicy and acidic food, do not eat within 2 hours of bed, and weight loss can help. Return precautions discussed including blood in vomit or stool, severe worsening of pain, etc. 7. S kin lesion Notes: pending derm eval * Procedure Codes: * Follow Up: 4 Weeks (Reason: mammo results) * Billing Information: * Visit Code: 09326 Office Visit, Est Pt., Level 4. * Procedure Codes: Care Plan Details* * CUTTER Sign off status: Completed true * Provider: Lizbeth Hancock PA-C Date: 03/25/2023 Generated for Pablito muniz/Darya/eTfrancisco javieritting on: 0 05/14/2024 07:11 PM CDT History and Physical Notes * Examination Category Sub-Category Detail Notes Category Not es General Examination General appearance: alert, p leasant, well-nourished and in no acute distress, morbid obesity ( BMi 45) Head: normocephalic, atrau matic Neck / thyroid: neck is supple, with full range of motion and no cervical lymphadenopathy Heart: regular rate and rhy thm without murmurs, gallops, clicks or rubs Chest: chest wall with no c ostochondral junction tenderness, no rib deformity and normal shape and expansion Lungs: nonlabored respirati ons, lungs are clear bilaterally without rales or rhonchi Abdomen: soft with good bowel sounds, nontender, and no masses or hepatosplenomegaly Skin: Assymetrical multico lored (black /blue) lesion -- raised off of skin 2.2cm x 1.8 cm -- nodular surface with 2 small red protrusions coming out of one end of it-- non-painful-- located to inner left buttock Extremities: normal extremity wit h no clubbing, cyanosis or edema Back: normal, without kyph oscoliosis or tenderness Breasts: Lymph nodes: no axillary, supracl avicular or inguinal lymphadenopathy Psych: alert and oriented x 3 , cooperative with exam , maintains good eye contact , with good judgement and insight , normal affect / mood Extremities right knee crepitus Consultation Request Notes Referral Date Referring Provider Referred Provider Not kary 01/24/2024 Rica Hancock [facility] [place] ([place] Screening Mammogram
--- OUTSIDE RECORDS SUMMARY | 2024-05-14 19:12 | XMS_ITS ---
Author Organization [facility] Address [address] [place] [address] Care Team Providers Care Tools And Parts Attendant Name Role Phone Rica Hancock Primary Care Provider Allergies Allergen (clinical drug ingredient) Drug/Non Drug Allergy documented on EMR Reaction Allergy Type Onset Date Status celecoxib CeleBREX Unknown Drug Allergy 06/18/2021 Active REASON FOR VISIT 3 month f/u, Pt did not do labs, pt informed to bring meds at every OV Medications Medication SIG (Take, Route, Frequency, Duration) Notes Start Date End Date Status traMADol HCl 50 MG 1 tablet as needed Orally every 8 hrs as needed by ER Active Crestor 20 MG Oral 05/11/2022 Not-T aking Omeprazole 40 MG 1 cap Oral Once a day as needed 05/11/2022 Active Rosuvastatin Calcium 20 MG 1 tablet Oral ly Once a day for 90 days Active Doxycycline Monohydrate 100 MG 1 capsule Orally twice a day for 10 days 01/10/2024 Not-Taking methIMAzole 5 MG 1 tablet Oral Once a day on Tuesday, Tue, Tue05/11/2022 Active Mupirocin Calcium 2 % 1 application Externally Twice a day for 5 days 01/10/2024 Active Hydroxychloroquine Sulfate 200 MG 1 tab Oral once a day 05/11/2022 Active Lisinopril-hydroCHLOROthiazi de 20-12.5 MG TAKE 1 TABLET BY MOUTH TWICE A DAY for 90 Active Gabapentin 100 MG 1 capsule Oral Once a day as needed 05/11/2022 Active Famotidine 20 MG 1 tablet Orally Twice a day for 90 days 01/02/2023 Active Social History Tobacco Use: Social History Observation Description Date Details (start date - stop date) Never Smoker NA - NA Tobacco Use/Smoking Question Answer Notes Tobacco use: nonsmoker Vital Signs Height 66.0 in 05/08/2024 Weight 278.2 lbs 05/08/2024 Weight-kg 126.19 kg 05/08/2024 BMI 44.9 kg/m2 05/08/2024 Blood pressure systolic 144 mm Hg 05/09/19 25 Blood pressure diastolic 81 mm Hg 025 Heart Rate 73 /min 05/08/2024 Temperature 97.7 degrees Fahrenheit 05/09/19 25 Oximetry 95 % 05/08/2024 Height-cm 167.64 cm 05/08/2024 Encounters Encounter Location Date Provider Diagnosis [facility] [place] [address] [place] [address] Rica Hancock Plan Of Treatment Next Appt Details Provider Name:Rica Berg s, 09/04/2024 09:00:00 AM, [address], [place], [address], Progress Notes * SANTANAKULDEEP WilsonH LDOB: [birth year] (74 yo F)Acc No.[id number]:05/08/2024 UNLOCKED PROGRESS NOTE Patient: SOHA AGUILAR Provider: Lizbeth Hancock PA-C :1950 A ge:74 Y S ex:Female Date:05/08/2024 Address:[address], [id number] Subjective: * Chief Complaints: * 1 . 3 month f/u. 2. Pt did not do labs. 3. pt informed to bring meds at every OV. * ROS: G eneral / Constitutional: - [...] denies headaches or confusion. * Medical History: P roblems: Anemia, Body mass index 40+ - severely obese, Chronic gastric ulcer without hemorrhage AND without perforation, Dysuria, Essential hypertension, History of polyp of colon, Hyperlipidemia, Hyperthyroidism, Impaired fasting glycemia, Mixed hyperlipidemia, Morbid obesity, Osteoarthritis, Osteoarthritis of right knee joint, Peripheral vascular disease, Thyroid nodule. * Surgical History: A ppendectomy ([id number]) 02/28/1961, Cholecystectomy 02/28/1977, Replacement of right knee joint ([id number]) 02/28/2014, Laminectomy ([id number]) Lumbar 02/28/2015, Left TKR , Cataracts , D&C . * Hospitalization/Major Diagno stic Procedure: C hest pain 12/19/22. * Family History: F ather: , diagnosed with Essential hypertension, Hypercholesteremia. M other: , diagnosed with Essential hypertension, Type 2 diabetes mellitus without complication, unspecified whether shipping track supervisor insulin use. S ister: Leukemia , Malignant neoplasm of brain , diagnosed with Essential hypertension, Type 2 diabetes mellitus without complication, unspecified whether retirement insulin use. M aternal Grandmother: Malignant tumor of breast . P aternal Uncle: Malignant tumor of stomach . M aternal Aunt: Malignant tumor of colon , Malignant tumor of breast .?3 sister(s) . . * Social History: T obacco Use: T obacco Use/Smoking T obacco use: n onsmoker * Medications: T aking Famotidine 20 MG Tablet 1 tablet Orally Twice a day , Taking Gabapentin 100 MG Capsule 1 capsule Oral Once a day as needed , Taking Hydroxychloroquine Sulfate 200 MG Tablet 1 tab Oral once a day , Taking Lisinopril-hydroCHLOROthiazide 20-12.5 MG Tablet TAKE 1 TABLET BY MOUTH TWICE A DAY , Taking methIMAzole 5 MG Tablet 1 tablet Oral Once a day on Tuesday, Tue, Tue , Taking Mupirocin Calcium 2 % Cream 1 application Externally Twice a day , Taking Omeprazole 40 MG Capsule Delayed Release 1 cap Oral Once a day as needed , Taking Rosuvastatin Calcium 20 MG Tablet 1 tablet Orally Once a day , Taking traMADol HCl 50 MG Tablet 1 tablet as needed Orally every 8 hrs as needed , Notes to Pharmacist: by ER, Not-Taking Crestor 20 MG Tablet Oral , Not-Taking Doxycycline Monohydrate 100 MG Capsule 1 capsule Orally twice a day , Medication List reviewed and reconciled with the patient * Allergies: Domenic PalmerX: Allergy - Onset Date 06/18/2021. Objective: * Vitals: H t: 66.0 in, Wt:278.2lbs, Wt-k.19 kg, BMI:44.9Index, BP:144/81mm Hg, HR:73/min, Temp:97.7F, Oxygen sat %:95%, Body Surface Area: 2.42, Ht-cm: 167.64 cm. * Examination: G eneral Examination: General appearance: w ell-appearing, well-developed, no acute distress. HEENT P ERRLA, EOMI, no pallor or icterus, T M's normal, no nasal congestion, T hroat: no congestion or exudate. Neck / thyroid: n o JVD, no lymphadenopathy, no thyromegaly, no carotid bruit. Heart: r egular rhythm, S1S2 normal, no S3 S4, no murmur, gallop or rub. Chest: s ymmetric without any chest wall tenderness. Abdomen: s oft, non tender, not distended, BS +, no organomegaly. Neurologic: c onscious, AAO x 3, no new focal deficits.? Back: n o spinal deformity or tenderness, no CVA tenderness. Musculoskeletal: n o new joint swellings or deformities.? Skin: n o rash or new skin lesions, n ormal turgor and texture. Breasts: d eferred. Respiratory b ilateral air entry normal, no rhonchi, rales or wheezing. Genitourinary d eferred. Assessment: Plan: * Treatment: * Procedure Codes: 3 077F SYST BP = 140 MM HG6 IT, 3079F DIAST BP 80-89 MM HG, G8417 BMI >=30 CALCUATE W/FOLLOWUP, 3008F BODY MASS INDEX DOCD, 1159F MED LIST DOCD IN RCRD, 1160F RVW MEDS BY RX/DR IN RCRD * Billing Information: * Visit Code: * Procedure Codes: 3077F SYST BP = 140 MM HG6 IT. 3079F DIAST BP 80-89 MM HG. G8417 BMI >=30 CALCUATE W/FOLLOWUP. 3008F BODY MASS INDEX DOCD. 1159F MED LIST DOCD IN RCRD. 1160F RVW MEDS BY RX/DR IN RCRD. Care Plan Details* * Electronic signature of ALIX Syed [id number] on 05/14/2024 at 07:12 PM CDT Sign off status: Pending * Provider: Lizbeth Hancock PA-C Date: 0 05/08/2024 Generated for Pablito muniz/Darya/Mika on: 0 05/14/2024 07:12 PM CDT History and Physical Notes * Examination Category Sub-Category Detail Notes Category Not es General Examination General appearance: well-eric earing, well-developed, no acute distress Neck / thyroid: no JVD, no lymphaden opathy, no thyromegaly, no carotid bruit Heart: regular rhythm, S1S2 normal, no S3 S4, no murmur, gallop or rub Chest: symmetric without an y chest wall tenderness Abdomen: soft, non tender, no t distended, BS +, no organomegaly Neurologic: conscious, AAO x 3, no new focal deficits Skin: no rash or new skin lesions, normal turgor and texture Back: no spinal deformity or tenderness, no CVA tenderness Breasts: deferred Musculoskeletal: no new joint swellin gs or deformities HEENT PERRLA, EOMI, no pal mervin or icterus, TM's normal, no nasal congestion, Throat: no congestion or exudate Respiratory bilateral air entry normal, no rhonchi, rales or wheezing Genitourinary deferred
--- OUTSIDE RECORDS SUMMARY | 2024-05-14 19:13 | XMS_ITS | Continuity of Care Document ---
Author Organization [facility] [place] [address] [place] [address] [place] [address] Phone Care Team Providers Care Leather Cartridge Belt Maker Name Role Phone Romeo Perez MD, FACS Unavailable Unavailab le Procedures Procedure Date Autonomous -Lasik Comanaged Autonomous -Lasik Comanaged Refractive Rx Kit Sales Tax Corneal Topography Advance Directives Directive Yes / No Effective Date File Name No Information Encounters Encounter Description Practice Location Reason(s) For Visit Diagnoses Date Provider Providers Copied on Encounter [facility], [address] [place], [place] [address], [place], [place], [id number], tel:[phone] [facility] No Information Chris Walters. [address] [place] [address] [address], [address], [place], [place], [id number], [place]. tel:[phone] [facility], [address] [place] [address] [address], [place], [place], [id number], tel:[phone] [facility] No Information [facility] . [address] [place] [address], [place], [place], [id number], [place]. tel:[phone] Family History Family Member Type Diagnosis Age At Onset No Information Payers Payer name Insurance type Covered republican ID Authoriza tion(s) No Information Social History [...]
--- OUTSIDE RECORDS SUMMARY | 2024-05-14 19:13 | XMS_ITS ---
Author Organization [facility] Address [address] [place] [address] Care Team Providers Care Spinner Operator Name Role Phone Rica Hancock Primary Care Provider Rocio Torres [phone] Results Component Value Reference Range Notes QuantaFlo - Single Level (93 [id number]) Reviewed date:01/19/2024 02:25:38 PM Interpretation: Performing Lab: Notes/Report: REASON FOR VISIT quantaflo Encounters Encounter Location Date Provider Diagnosis [facility] [place] [address] 01/18/2024 Rocio Torres Peripheral vascular disease, unspecified I73.9 Assessments Encounter Date Diagnosis (ICD Code) Assessment Notes Treatment Notes Treatment Clinical Notes Section Notes 01/18/2024 Peripheral vascular disease, unspecified (ICD-10 - I73.9) Treatment: continue with statin treatment for hyperlipidemia and ARB medication for HTN. Patient to exercise daily at least 30 minutes and a healthy diet of low fat/sugar/sodium. continue with daily ASA. RTO as scheduled Plan Of Treatment Treatment Notes Assessment Notes Peripheral vascular disease, unspecified Treatment: continue with statin treatment for hyperlipidemia and ARB medication for HTN. Patient to exercise daily at least 30 minutes and a healthy diet of low fat/sugar/sodium. continue with daily ASA. RTO as scheduled Next Appt Details Provider Name:Rica heard, 09/04/2024 09:00:00 AM, [place], [address], Progress Notes * SOHA GUILLERMO LDOB: [birth year] (73 yo F)Acc No.[id number]:01/18/2024 Patient: SOHA AGUILAR Provider: BERLIN Gutierres :1950 A ge:73 Y S ex:Female Date:01/18/2024 Address:[facility] [address], [place], [place] Pcp:Rica Hancock Subjective: * Chief Complaints: * Q uantaflo * Medical History: * Surgical History: * Hospitalization/Major Diagno stic Procedure: * Medications: Objective: * Vitals: Assessment: * Assessment: 1. P eripheral vascular disease, unspecified - I73.9 Plan: * Treatment: * Notes: Treatment: continue with statin treatment for hyperlipidemia and ARB medication for HTN. Patient to exercise daily at least 30 minutes and a healthy diet of low fat/sugar/sodium. continue withdaily ASA. RTO as scheduled?? * Procedure Codes: 9 3922 EXTREMITY STUDY, Units: 2.00 * Billing Information: * Visit Code: * Procedure Codes: 19913 EXTREMITY STUDY. Units: 2.00. * NSED CLINICAL SOCIAL WORKER Sign off status: Completed true * Provider: BERLIN Gutierres Date: 03/19/2023 Generated for Pablito muniz/Darya/Memeitting on: 0 05/14/2024 07:12 PM CDT
--- OUTSIDE RECORDS SUMMARY | 2024-05-14 19:13 | XMS_ITS | Patient Health Record ---
Author Organization [facility] Address [address] [place] [address] Care Team Providers Care Emergency Department Technician Name Role Phone Rica Hancock Primary Care Provider [phone] Rocio Torres Unavailable [phone] Venita Stock Unavailable [phone] Allergies Allergen (clinical drug ingredient) Drug/Non Drug Allergy documented on EMR Reaction Allergy Type Onset Date Status celecoxib CeleBREX Unknown Drug Allergy 06/18/2021 Active Results Component Value Reference Range Notes 9179 COMPREHENSIVE METABOLIC PANEL Reviewed date:05/09/2024 01:38:09 PM Interpretation: Performing Lab: Notes/Report: GLUCOSE 91 70-99 MG/DL BUN 16 8-23 MG/DL CREATININE 0.76 0.60-1.30 MG/DL eGFR (2020 CKD-EPI) 82 >60 ML/MIN/1.73 CALC BUN/CREAT 21 6-28 RATIO SODIUM 141 133-146 MEQ/L POTASSIUM 4.0 3.5-5.4 MEQ/L CHLORIDE 99 95-107 MEQ/L CARBON DIOXIDE 27 19-31 MEQ/L CALCIUM 10.4 8.5-10.5 MG/DL PROTEIN, TOTAL 7.1 6.1-8.3 G/DL ALBUMIN 4.5 3.5-5.2 G/DL CALC GLOBULIN 2.6 1.9-3.7 G/DL CALC A/G RATIO 1.7 1.0-2.6 RATIO BILIRUBIN, TOTAL 0.3 <=1.2 MG/DL ALKALINE PHOSPHATASE 86 40-142 U/L AST 20 9-40 U/L ALT 19 5-40 U/L 4958 VITAMIN D, 25 OH Reviewed date:05/09/2024 01:38:09 PM Interpretation: Performing Lab: Notes/Report: VITAMIN D, 25 OH 71 SEE BELOW NG/ML NOTE: 25-HYDROXYVITAMIN D ASSAY INCLUDES 25-HYDROXYVITAMIN D2 AND D3. INTERPRETIVE RANGES PEDIATRIC (<17 YEARS) . . . . . . . . . . . NG/ML 20-100 ADULT: INSUFFICIENT . . . . . . . . . . . . . . NG/ML <20 SUBOPTIMAL . . . . . . . . . . . . . . . NG/ML 20-29 OPTIMAL . . . . . . . . . . . . . . . . . NG/ML 30-100 UNLESS OTHERWISE INDICATED, ALL TESTING PERFORMED AT [facility] [address] [place] [address] HEAVY EQUIPMENT SERVICE TECHNICIAN: KALEIGH GONZALEZ M.D. [facility] NUMBER [id number] [facility] [place]. [id number] URINALYSIS W/REFLEX ANA RO Reviewed date:05/09/2024 01:43:42 PM Interpretation: Performing Lab: Notes/Report: COLOR YELLOW YELLOW-STRAW APPEARANCE CLEAR CLEAR SPECIFIC GRAVITY 1.012 1.005-1.035 LEUKOCYTE ESTERASE TRACE NEGATIVE NITRITE NEGATIVE NEGATIVE pH 7.5 5.0-9.0 PROTEIN NEGATIVE NEGATIVE GLUCOSE NEGATIVE NEGATIVE KETONES NEGATIVE NEGATIVE UROBILINOGEN 0.2 <=2.0 MG/DL BILIRUBIN NEGATIVE NEGATIVE OCCULT BLOOD NEGATIVE NEGATIVE WHITE BLOOD CELLS 6-10 0-5 /HPF RED BLOOD CELLS 0-2 0-2 /HPF EPITHELIAL CELLS 0-5 0-10 /HPF BACTERIA 1+ NONE SEEN CASTS, HYALINE NONE SEEN NONE-TRACE 1000 CBC W/AUTO DIFF Reviewed date:05/09/2024 01:43:54 PM Interpretation: Performing Lab: Notes/Report: WBC 6.6 3.5-11.0 K/UL RBC 4.61 3.80-5.40 M/UL HEMOGLOBIN 13.2 11.5-15.5 G/DL HEMATOCRIT 40.5 34.0-45.0 % MCV 87.9 80.0-99.0 fL MCH 28.6 25.0-33.0 PG MCHC 32.6 31.0-36.0 G/DL RDW 13.5 11.5-15.0 % NEUTROPHILS 73.7 LYMPHOCYTES 13.3 MONOCYTES 10.5 EOSINOPHILS 1.7 BASOPHILS 0.5 IMMATURE GRANULOCYTES 0.3 NUCLEATED RBCS 0.0 0.0 /100 WBC'S PLATELET COUNT 169 130-400 K/UL ABSOLUTE NEUTROPHILS 4.87 1.50-7.50 K/UL ABSOLUTE LYMPHOCYTES 0.88 1.00-4.00 K/UL ABSOLUTE MONOCYTES 0.69 0.20-1.00 K/UL ABSOLUTE EOSINOPHILS 0.11 0.00-0.50 K/UL ABSOLUTE BASOPHILS 0.03 0.00-0.20 K/UL ABS IMMATURE GRANULOCYTES 0.02 0.00-0.10 K/UL ABS NUCLEATED RBCS 0.00 0.00-0.11 K/UL 173 LIPID PANEL Reviewed date:05/09/2024 01:38:09 PM Interpretation: Performing Lab: Notes/Report: CHOLESTEROL 142 <200 MG/DL TRIGLYCERIDES 112 <150 MG/DL HDL CHOLESTEROL 61 >39 MG/DL CALC LDL CHOL 61 <100 MG/DL NOTE: CALCULATED LDL IS BASED ON BETO-FLORES METHOD WHICH INCLUDES ADJUSTABLE TRIGLYCERIDE:VLDL CHOLESTEROL RATIO. THIS FACTOR VARIES BY MEASURED TRIGLYCERIDE AND NON-HDL CHOLESTEROL CONCENTRATIONS WITH INCREASED CALCULATED LDL SEEN IN HIGHER TRIGLYCERIDE OR LOWER NON-HDL SPECIMENS. FOR MORE INFORMATION, SEE CLIENT ANNOUNCEMENT AT [email or web address] RATIO LDL/HDL 1.00 <3.22 RATIO 173 LIPID PANEL Reviewed date:01/19/2024 12:18:09 PM Interpretation: Performing Lab: Notes/Report: IFOB GIVEN PT FASTING CHOLESTEROL 154 <200 MG/DL TRIGLYCERIDES 138 <150 MG/DL HDL CHOLESTEROL 63 >39 MG/DL CALC LDL CHOL 69 <100 MG/DL NOTE: CALCULATED LDL IS BASED ON BETO-FLORES METHOD WHICH INCLUDES ADJUSTABLE TRIGLYCERIDE:VLDL CHOLESTEROL RATIO. THIS FACTOR VARIES BY MEASURED TRIGLYCERIDE AND NON-HDL CHOLESTEROL CONCENTRATIONS WITH INCREASED CALCULATED LDL SEEN IN HIGHER TRIGLYCERIDE OR LOWER NON-HDL SPECIMENS. FOR MORE INFORMATION, SEE CLIENT ANNOUNCEMENT AT [email or web address] RATIO LDL/HDL 1.10 <3.22 RATIO 9179 COMPREHENSIVE METABOLIC PANEL Reviewed date:01/19/2024 12:26:01 PM Interpretation: Performing Lab: Notes/Report: IFOB GIVEN PT FASTING GLUCOSE 101 70-99 MG/DL BUN 22 8-23 MG/DL CREATININE 0.75 0.60-1.30 MG/DL eGFR (2020 CKD-EPI) 83 >60 ML/MIN/1.73 CALC BUN/CREAT 29 6-28 RATIO SODIUM 138 133-146 MEQ/L POTASSIUM 3.9 3.5-5.4 MEQ/L CHLORIDE 99 95-107 MEQ/L CARBON DIOXIDE 28 19-31 MEQ/L CALCIUM 10.1 8.5-10.5 MG/DL PROTEIN, TOTAL 7.5 6.1-8.3 G/DL ALBUMIN 4.6 3.5-5.2 G/DL CALC GLOBULIN 2.9 1.9-3.7 G/DL CALC A/G RATIO 1.6 1.0-2.6 RATIO BILIRUBIN, TOTAL 0.4 <=1.2 MG/DL ALKALINE PHOSPHATASE 85 40-142 U/L AST 19 9-40 U/L ALT 21 5-40 U/L UNLESS OTHERWISE INDICATED, ALL TESTING PERFORMED AT [facility] [address] [place] [id number] [employer] SERVICE TECHNICIAN: KALEIGH GONZALEZ M.D. CLIA NUMBER [id number] [facility] [place]. [id number] 1000 CBC W/AUTO DIFF Reviewed date:01/19/2024 12:18:09 PM Interpretation: Performing Lab: Notes/Report: IFOB GIVEN PT FASTING WBC 7.3 3.5-11.0 K/UL RBC 4.62 3.80-5.40 M/UL HEMOGLOBIN 12.9 11.5-15.5 G/DL HEMATOCRIT 40.3 34.0-45.0 % MCV 87.2 80.0-99.0 fL MCH 27.9 25.0-33.0 PG MCHC 32.0 31.0-36.0 G/DL RDW 14.2 11.5-15.0 % NEUTROPHILS 67.9 LYMPHOCYTES 17.7 MONOCYTES 10.6 EOSINOPHILS 2.9 BASOPHILS 0.5 IMMATURE GRANULOCYTES 0.4 NUCLEATED RBCS 0.0 0.0 /100 WBC'S PLATELET COUNT 153 130-400 K/UL ABSOLUTE NEUTROPHILS 4.94 1.50-7.50 K/UL ABSOLUTE LYMPHOCYTES 1.29 1.00-4.00 K/UL ABSOLUTE MONOCYTES 0.77 0.20-1.00 K/UL ABSOLUTE EOSINOPHILS 0.21 0.00-0.50 K/UL ABSOLUTE BASOPHILS 0.04 0.00-0.20 K/UL ABS IMMATURE GRANULOCYTES 0.03 0.00-0.10 K/UL ABS NUCLEATED RBCS 0.00 0.00-0.11 K/UL 4958 VITAMIN D, 25 OH Reviewed date:01/19/2024 12:18:09 PM Interpretation: Performing Lab: Notes/Report: IFOB GIVEN PT FASTING VITAMIN D, 25 OH 62 SEE BELOW NG/ML AND D3. INTERPRETIVE RANGES PEDIATRIC (<17 YEARS) . . . . . . . . . . . NG/ML 20-100 ADULT: NOTE: 25-HYDROXYVITAMIN D ASSAY INCLUDES 25-HYDROXYVITAMIN D2 INSUFFICIENT . . . . . . . . . . . . . . NG/ML <20 SUBOPTIMAL . . . . . . . . . . . . . . . NG/ML 20-29 OPTIMAL . . . . . . . . . . . . . . . . . NG/ML 30-100 4895 ALBUMIN/CREATININE RATI O, RANDOM URINE Reviewed date:01/19/2024 12:18:09 PM Interpretation: Performing Lab: Notes/Report: IFOB GIVEN PT FASTING CREATININE, URINE, CONC. 357.9 NOT ESTAB MG/DL ALBUMIN, URINE, RANDOM 4.6 NOT ESTAB MG/DL CALC ALBUMIN/CREAT, RND 13 <30 MG/G Note: Albumin/Creatinine ratio reference interval reflects ADA and NKF guidelines. 2708 HEMOGLOBIN A1c Reviewed date:01/19/2024 04:57:05 PM Interpretation: Performing Lab: Notes/Report: IFOB GIVEN PT FASTING HEMOGLOBIN A1c 5.9 4.2-5.6 % [employer] GUIDELINES FOR HGB A1C: PREDIABETES/INCREASED RISK . . . . . . . 5.7-6.4% DIAGNOSIS OF DIABETES . . . . . . . . . >=6.5% WITH CONFIRMATION OR APPROPRIATE SYMPTOMS NOTE: ASSAY MAY BE AFFECTED BY HEMOGLOBINOPATHIES (SICKLE CELL ANEMIA, S-C DISEASE, OTHERS) OR ARTIFICIALLY LOWERED BY DECREASED RED CELL SURVIVAL (HEMOLYTIC ANEMIAS, BLOOD LOSS, ETC.). CONSIDER ALTERNATE TESTING OR LABORATORY CONSULTATION. 1505 URINALYSIS WITH [facility] OPI Reviewed date:01/19/2024 04:57:19 PM Interpretation: Performing Lab: Notes/Report: IFOB GIVEN PT FASTING COLOR DARK YELLOW YELLOW-STRAW APPEARANCE CLEAR CLEAR SPECIFIC GRAVITY 1.031 1.005-1.035 LEUKOCYTE ESTERASE NEGATIVE NEGATIVE NITRITE NEGATIVE NEGATIVE pH 6.0 5.0-9.0 PROTEIN 1+ NEGATIVE GLUCOSE NEGATIVE NEGATIVE KETONES TRACE NEGATIVE UROBILINOGEN 1.0 <=2.0 MG/DL BILIRUBIN NEGATIVE NEGATIVE OCCULT BLOOD NEGATIVE NEGATIVE WHITE BLOOD CELLS 6-10 0-5 /HPF RED BLOOD CELLS 0-2 0-2 /HPF EPITHELIAL CELLS 6-10 0-10 /HPF BACTERIA TRACE NONE SEEN CASTS, HYALINE NONE SEEN NONE-TRACE 7008 OCCULT BLD,FECAL,IMMUNO ASSAY DIAG Reviewed date:01/24/2024 01:54:26 PM Interpretation: Performing Lab: Notes/Report: OCCULT BLD, FECAL NEGATIVE NEGATIVE UNLESS OTHERWISE INDICATED, ALL TESTING PERFORMED AT [facility] [address] [place] [address] HE[employer] E[employer]IP[employer] SERVICE TECHNICIAN: KALEIGH GONZALEZ M.D. CLIA NUMBER [id number] [facility] [place]. [id number] [employer] Single [employer] (93 922) Reviewed date:01/19/2024 02:25:38 PM Interpretation: Performing Lab: Notes/Report: DEXA ([id number]) Reviewed date:01/24/2024 01:54:57 PM Interpretation: Performing Lab: Notes/Report: Reason For Referral Reason eval and treatment Diagnosis 1 Skin lesion (L98.9) Referral Organization [facility] [place] Referring Provider First Name Rica Referring Provider Last Name Santi Referring Provider Speciality Physician [employer] Administrator Referred Provider Caleb Mcneil Referred Provider Specialty Dermatology Clinical Notes Gail Orozco 024 11:18:32 AM >referral faxed Referral Priority Urgent Referral Appointment Date 01/23/2024 Reason eval and treat patient has pending labs, will send them as soon as we receive them Diagnosis 1 Paronychia of great toe of left foot (L03.032) Referral Organization [facility] [place] Referring Provider First Name Rica Referring Provider Last Name Santi Referring Provider Speciality Physician [employer] Administrator Referred Provider Sebas Genao Referred Provider Specialty Podiatry - S urgical Chiropody Clinical Notes Gail Orozco 024 11:33:31 AM >patient notify Referral Priority Urgent Referral Appointment Date 01/24/2024 Reason Screening Mammogram Diagnosis 1 Encounter for other screening for malignant neoplasm of breast (Z12.39) Referral Organization [facility] [place] Referring Provider First Name Rica Referring Provider Last Name Santi Referring Provider Speciality Physician [employer] Administrator Referred Provider [facility] [employer] ([place]) Referred Provider Specialty Diagnostic X -Ray Referral Priority Routine Referral Appointment Date 02/02/2024 Medications Medication SIG (Take, Route, Frequency, Duration) Notes Start Date End Date Status methIMAzole 5 MG 1 tablet Oral Once a day on Tuesday, Tue, Tue05/11/2022 Active Mupirocin Calcium 2 % 1 application Externally Twice a day for 5 days 01/10/2024 Active Hydroxychloroquine Sulfate 200 MG 1 tab Oral once a day 05/11/2022 Active Lisinopril-hydroCHLOROthiazi de 20-12.5 MG TAKE 1 TABLET BY MOUTH TWICE A DAY for 90 Active traMADol HCl 50 MG 1 tablet as needed Orally every 8 hrs as needed by ER Active Crestor 20 MG Oral 05/11/2022 Not-T aking Omeprazole 40 MG 1 cap Oral Once a day as needed 05/11/2022 Active Rosuvastatin Calcium 20 MG 1 tablet Oral ly Once a day for 90 days Active Gabapentin 100 MG 1 capsule Oral Once a day as needed 05/11/2022 Active Doxycycline Monohydrate 100 MG 1 capsule Orally twice a day for 10 days 01/10/2024 Not-Taking Famotidine 20 MG 1 tablet Orally Twice a day for 90 days 01/02/2023 Active Social History Tobacco Use: Social History Observation Description Date Details (start date - stop date) Never Smoker NA - NA Tobacco Use/Smoking Question Answer Notes Tobacco use: nonsmoker Alcohol Screen (Audit-C) Question Answer Notes Did you have a drink contain ing alcohol in the past year? Yes How often did you have a dri nk containing alcohol in the past year? Monthly or less (1 point) How many drinks did you have on a typical day when you were drinking in the past year? 1 or 2 drinks (0 point) How often did you have 6 or more drinks on one occasion in the past year? Never (0 point) Points 1 Interpretation Negative Problems Problem Type SNOMED Code ICD Code Onset Dates Problem Status W/U Status Risk Notes Problem Malignant tumor of thyroid gland (991150149) Malignant neoplasm of thyroid gland (C73) Active confirmed Problem Non-toxic single thyroid nodule (418132891) Nontoxic single thyroid nodule (E04.1) 022 Active confirmed Problem Disorder of adrenal gland (47639793) Other specified disorders of adrenal gland (E27.8) Active confirmed Problem Vitamin D deficiency (56999948) Vitamin D deficiency, unspecified (E55.9) Active confirmed Problem Peripheral vascular disease (312472229) Other specified peripheral vascular diseases (I73.89) Active confirmed Problem Peripheral vascular disease (555792251) Peripheral vascular disease, unspecified (I73.9) Active confirmed Problem Mixed hyperlipidemia (023196298) Mixed hyperlipidemia (E78.2) Active confirmed Problem Essential hypertension (78173667) Essential (primary) hypertension (I10) Active confirmed Problem Cervical spondylosis (678106776) Cervical spondylosis (M47.812) Active confirmed Problem 481977967 BMI 45.0-49.9, a dult (Z68.42) Active confirmed Problem 374326630 Morbid obesity (E66.01) Active confirmed Problem 423429788 Gastroesophageal reflux disease without esophagitis (K21.9) Active confirmed Problem Localized, primary osteoarthritis of the shoulder region (627671875) Localized osteoarthritis of left shoulder (M19.012) Active confirmed Problem Other specified hypoparathyroidism (E20.89) Active confirmed Vital Signs Heart Rate 73 /min 05/08/2024 Temperature 97.7 degrees Fahrenheit 05/08/2024 Height-cm 167.64 cm 05/08/2024 Oximetry 95 % 05/08/2024 Blood pressure diastolic 81 mm Hg 05/08/2024 Weight-kg 126.19 kg 05/08/2024 Height 66.0 in 05/08/2024 Blood pressure systolic 144 mm Hg 05/08/2024 Weight 278.2 lbs 05/08/2024 BMI 44.9 kg/m2 05/08/2024 Procedures Procedure Date Ordered Date Performed Result Body Sit e HEDIS: Blood Pressure Diasto lic Less than 80 01/10/2024 01/11/2024 N/A HEDIS: Blood Pressure Systolic 130-139 01/10/2024 01/11/20 24 N/A HEDIS: COA Functional Status 01/10/2024 01/11/2024 N/A HEDIS: COA Medication Review 01/10/2024 01/11/2024 N/A HEDIS: Fall Risk (If completed) 01/10/2024 01/11/2024 N/A HEDIS: Depression Screening (If completed) 01/10/2024 01/11/2024 N/A HEDIS: COA Pain Present 01/10/2024 01/11/2024 N/A HEDIS: Depression Screening - Negative 01/10/2024 01/11/20 24 N/A HEDIS: BMI > 30 01/10/2024 01/11/2024 N/A HEDIS: Fall Risk - No Falls or 1 fall 01/10/2024 N/A Encounters Encounter Location Date Provider Diagnosis [facility] [address] [facility] [place] [address] [facility]09/[facility]23 [facility] [address] [place] [address] 10/12/2023 Rica Hancock [facility] [address] [place] [address] 01/10/2024 Rica Hancock Encounter for genera l adult medical examination with abnormal findings Z00.01 ; Screening for cardiovascular condition Z13.6 ; POST-MENOPAUSAL Z78.0 ; Colon cancer screening Z12.11 ; Mixed hyperlipidemia E78.2 ; Essential (primary) hypertension I10 ; Vitamin D deficiency, unspecified E55.9 ; Impaired fasting glucose R73.01 ; Malignant neoplasm of thyroid gland C73 ; Other specified hypoparathyroidism E20.89 ; Other specified disorders of adrenal gland E27.8 ; Skin lesion L98.9 and Paronychia of great toe of left foot L03.032 [facility] [address] [place] [address] 01/24/2024 Rica Hancock Encounter for other screening for malignant neoplasm of breast Z12.39 ; Mixed hyperlipidemia E78.2 ; Essential (primary) hypertension I10 ; Peripheral vascular disease, unspecified I73.9 ; Impaired fasting glucose R73.01 ; Gastroesophageal reflux disease without esophagitis K21.9 and Skin lesion L98.9 [facility] [address] [place] [address] 01/17/2024 Rica Hancock [facility] [address] [place] [address] 01/18/2024 Rica Hancock Menopause Z78.0 DON[facility] [address] [place] [address] 01/18/2024 Rocio Torres Peripheral vascular disease, unspecified I73.9 DONET [facility] [address] [place] [address] 05/08/2024 Rica Hancock Assessments Encounter Date Diagnosis (ICD Code) Assessment Notes Treatment Notes Treatment Clinical Notes Section Notes 01/10/2024 Encounter for genera l adult medical examination with abnormal findings (ICD-10 - Z00.01) Patient presented to office today for their Annual Wellness Visit. Education was provided on healthy nutrition, including a diet rich in fruits and vegetables, minimizing simple carbohydrates, salt, and saturated fats. Encouraged regular cardiovascular exercise such as walking at least 30 minutes daily, 5 times per week. Emphasized preventive health measures and educated pt on fall prevention and community-based lifestyle interventions to help reduce health risks and promote healthy living. 01/10/2024 Screening for cardiovascular condition (ICD-10 - Z13.6) 01/18/2024 Menopause (ICD-10 - Z78.0) 01/18/2024 Peripheral vascular disease, unspecified (ICD-10 - I73.9) Treatment: continue with statin treatment for hyperlipidemia and ARB medication for HTN. Patient to exercise daily at least 30 minutes and a healthy diet of low fat/sugar/sodium. continue with daily ASA. RTO as scheduled 01/24/2024 Encounter for other screening for malignant [...] Maintain blood pressure <130/80. RTO as scheduled. 01/10/2024 POST-MENOPAUSAL (ICD-10 - Z78.0) DEXA scan ordered for osteoporosis screening. Daily vitamin D and calcium supplementation encouraged. 01/10/2024 Colon cancer screening (ICD-10 - Z12.11) The [place]. Preventive Services Task Force (Task Force) recommends that adults age 45 to 75 be screened for colorectal cancer. Colon cancer is common in the [place] but by catching it early we can often treat it. It is recommended to have a colonoscopy every 10 years unless told otherwise. Risk factors for colon cancer include poor diet, obesity, smoking, alcoholism. 01/24/2024 Peripheral vascular disease, unspecified (ICD-10 - [...] encouraged. Will monitor closely with A1C testing 01/10/2024 Mixed hyperlipidemia (ICD-10 - E78.2) Follow low fat diet, increase physical activity, and medication compliance a must, make sure to keep routine lab updates to evaluate cholesterol. 01/10/2024 Essential (primary) hypertension (ICD-10 - I10) Treatment: Check Blood Pressure Daily. Continue with Antihypertensive medication. Diet: Low Sodium Diet < 2000 mg/ Day. Recommendations: Exercise 30 minutes daily with Caution and Monitor Blood Pressure daily. Maintain blood pressure <130/80. RTO as scheduled. 01/24/2024 Gastroesophageal reflux disease without esophagitis (ICD-10 - K21.9) Advised pt to eat smaller meals, avoid spicy and acidic food, do not eat within 2 hours of bed, and weight loss can help. Return precautions discussed including blood in vomit or stool, severe worsening of pain, etc. 01/24/2024 Skin lesion (ICD-10 - L98.9) pending derm eval 01/10/2024 Vitamin D deficiency , unspecified (ICD-10 - E55.9) Patient is deficient in vitamin D. Patient is to take vitamin D supplements as directed for bone health and osteoporosis prevention. Patient CAN take vitamin D3 [id number] and go outside at least 15-20 minutes per day. 01/10/2024 Impaired fasting glucose (ICD-10 - R73.01) Discussed with patient that lab results show impaired fasting blood glucose which suggests insulin resistance and a predisposition for diabetes; risk factors discussed in detail; a lower carbohydrate diet advised. Weight loss and exercise encouraged. Will monitor closely with A1C testing 01/10/2024 Malignant neoplasm o f thyroid gland (ICD-10 - C73) Pt is under care with Endo--last consult note on file pt is being monitored with serial labs and thyroid cancer markers palillary thyroid carcinoma pt advised to take calcium 600mg 2 tabs bid and tums 1000 mg 2 tabs bid due to post op hypocalcemia Pt is taking levothyroxine 175mg M-Sat and skips dose on Tuesday pt advised to keep appt with Endocrinology as directed 01/10/2024 Other specified hypoparathyroidism (ICD-10 - E20.89) Pt is under care with Endo--last consult note on file pt is being monitored with serial labs and thyroid cancer markers palillary thyroid carcinoma pt advised to take calcium 600mg 2 tabs bid and tums 1000 mg 2 tabs bid due to post op hypocalcemia Pt is taking levothyroxine 175mg M-Sat and skips dose on Tuesday pt advised to keep appt with Endocrinology as directed 01/10/2024 Other specified disorders of adrenal gland (ICD-10 - E27.8) Pt is under care with Endo--last consult note on file pt is being monitored with serial labs and thyroid cancer markers palillary thyroid carcinoma pt advised to take calcium 600mg 2 tabs bid and tums 1000 mg 2 tabs bid due to post op hypocalcemia Pt is taking levothyroxine 175mg M-Sat and skips dose on Tuesday pt advised to keep appt with Endocrinology as directed 01/10/2024 Skin lesion (ICD-10 - L98.9) will refer to DERm for full eval 01/10/2024 Paronychia of great toe of left foot (ICD-10 - L03.032) Wash hand with warm soap and water. Apply bandage when using hands. Let air out when not using hands. Apply ointment as directed. Avoid submersion into water until healed. Patient informed of warning signs to be cautious of such as redness, swelling of hand, or fever. RTC if warning signs experienced. Plan Of Treatment Future Test Test Name Order Date Mammogram, Bilateral Screening (51045) 0 04/27/2023 173 LIPID PANEL 04/25/2024 1000 CBC W/AUTO DIFF 04/25/2024 1505 URINALYSIS WITH MICROSCOPIC 025 2708 HEMOGLOBIN A1c 04/25/2024 4895 ALBUMIN/CREATININE RATIO, RANDOM UR INE 04/25/2024 9179 COMPREHENSIVE METABOLIC PANEL 04/25 Next Appt Details Provider Name:Rica Berg s, 09/04/2024 09:00:00 AM, [address], [place], [address], Insurance Providers Payer Name Payer Address Payer Phone Subscriber Number Group Number Insured Name Patient Relationship to Insured Coverage Start Date Coverage End Date [place] [address] [place] [address] [id number] SOHA GUILLERMO Self - patient is the insured 5 [employer] Medicare Supplement [address] [place], [place] [phone] [id number] SOHA GUILLEMRO Self - patient is the insured 5 Medical (General) History Medical History History ICD Code Problems: Anemia Body mass index 40+ - severely obese Chronic gastric ulcer without hemorrhage AND without perforation Dysuria Essential hypertension History of polyp of colon Hyperlipidemia Hyperthyroidism Impaired fasting glycemia Mixed hyperlipidemia Morbid obesity Osteoarthritis Osteoarthritis of right knee joint Peripheral vascular disease Thyroid nodule Surgical History Surgery Date(Month/Year) D&C Cataracts Left TKR Laminectomy (232187794) Lumbar 6 Replacement of right knee joint ([id number]) 02/28/2014 Cholecystectomy 02/28/1977 Appendectomy ([id number]) 02/28/1961 Hospitalization History Reason Date(Month/Year) Chest pain 12/19/22
== END 2024-05-14 19:20 | disposition home or self-care (01) ==
PROVIDERS: Emergency Provider Nurse Practitioner; PCP Internal Medicine
DX: Z48.01 Encounter for change or removal of surgical wound dressing (principal); C43.9 Malignant melanoma of skin, unspecified
CPT/HCPCS: 99211; G0463